=== PATIENT | female | born 1960 | race African-American/Black ===

== ENCOUNTER 2017-08-25 12:00 | Emergency (ER) | payer SELFPAY, MEDICAID | END 2017-08-25 12:45 | disposition home or self-care (01) | LOC: ER 12:00 | DX: J40 Bronchitis, not specified as acute or chronic (principal); I10 Essential (primary) hypertension; F32.9 Major depressive disorder, single episode, unspecified; Z88.8 Allergy status to other drugs, medicaments and biological substances | CPT/HCPCS: 99283 ==